=== PATIENT | male | born 1980 | race Caucasian/White ===

== ENCOUNTER 2018-07-10 11:39 | Emergency (ER) | payer MEDICAID ==
[~2018-07-10] VITALS: Ht 175.3 cm; Wt 95.3 kg
[2018-07-10 11:53] VITALS: Ht 175.3 cm; Wt 95.3 kg
[2018-07-10 13:04] LABS: BASOPHIL % 0.1 % (0-2); PLATELET COUNT 226 x10^3mcL (130-400)
[2018-07-10 13:59] LABS: CHLORIDE SERUM 103 mmol/L (98-107); CREATININE SERUM 1.1 mg/dL (0.7-1.3); GFR1 > 60 mL/min; GLUCOSE SERUM 135 mg/dL (74-106); POTASSIUM SERUM 4.2 mmol/L (3.5-5.1); SODIUM SERUM 138 mmol/L (136-145)
[2018-07-10 14:03] LABS: ALBUMIN 4.2 g/dL (3.4-5.0); ALKALINE PHOSPHATASE 86 U/L (46-116); ALT/SGPT 166 U/L (16-63); AMYLASE 69 U/L (25-115); AST/SGOT 58 U/L (15-37); BILIRUBIN TOTAL 0.6 mg/dL (0.20-1.00); LIPASE 97 IU/L (73-393)
[2018-07-10 17:04] VITALS: BP 134/77
== END 2018-07-10 17:49 | disposition home or self-care (01) ==
LOC: ED 11:39
PROVIDERS: Specialist
DX: R10.9 Unspecified abdominal pain (principal); Z87.442 Personal history of urinary calculi
CPT/HCPCS: J1885; J2405; J3010; J7030; J7040; Q9967